=== PATIENT | male | born 1955 ===

== ENCOUNTER 2023-05-12 09:25 | Outpatient (CLI) | payer MEDICARE, SELFPAY ==
--- NOTE | 2023-05-13 10:05 | WPDPFTINT ---
PFT Procedure Performed PFT Procedure Performed Spirometry with Pre/Post Bronchodilator Plethysmography (Lung Vol) Flow Vol Loop PFT Interpretation Lung volumes were measured with the body plethysmography method. Lung volumes are unremarkable. Spirometry showed normal expiratory flow rates and a normal FEV1 to FVC ratio of 76%. Following administration of a bronchodilator there was no significant increase in the expiratory flow rates. The flow-volume loop is unremarkable. Lung diffusion capacity was not measured as patient was unable to perform the maneuver for lung diffusion measurement after multiple attempts. Impression: Spirometry, lung volumes within the normal range.
== END 2023-05-12 09:26 | disposition home or self-care (01) ==
LOC: ANHPFT 09:27
DX: C34.92 Malignant neoplasm of unspecified part of left bronchus or lung (principal)
CPT/HCPCS: 94060; 94726